=== PATIENT | female | born 1930 | race American Indian/Alaskan Native ===

== ENCOUNTER 2016-07-16 17:57 | Emergency (ER) | payer MEDICARE ==
[2016-07-16 20:59] LABS: Basophils % (Auto) 0.4 % (0.0-1.8); Eosinophils % (Auto) 0.7 % (0.0-4.3); Hematocrit 41.6 % (30.3-42.9); Mean Corpuscular HGB Conc 34 % (30-34); Mean Corpuscular Hemoglobin 31 pg (28-32); Mean Corpuscular Volume 92 fl (79-97); Platelet Count 181 K/mm3 (140-440); Red Blood Count 4.53 M/mm3 (3.65-5.03); Red Cell Distribution Width 14.2 % (13.2-15.2); White Blood Count 9.3 K/mm3 (4.5-11.0)
[2016-07-16] MEDS ORDERED: TYLENOL PO ONE (21:07)
[2016-07-16] MEDS ORDERED: TENIVAC IM ONE (21:07)
[2016-07-16 21:09] LABS: Creatine Kinase MB 1.7 ng/mL (0.0-4.0)
[2016-07-16 21:10] LABS: Creatine Kinase 36 units/L (30-135)
[2016-07-16 21:49] LABS: Albumin 4.3 g/dL (3.9-5); Albumin/Globulin Ratio 1.8 %; BUN/Creatinine Ratio 16.36; Bilirubin,Total 0.4 mg/dL (0.1-1.2); Calcium 9.4 mg/dL (8.4-10.2); Chloride 101.3 mmol/L (98-107); Potassium 3.6 mmol/L (3.6-5.0); Total Protein 6.7 g/dL (6.3-8.2)
[2016-07-16 22:01] LABS: Bacteria,Urine 1+ /HPF (Negative); Bilirubin,Urine NEG (Negative); Blood,Urine NEG (Negative); Ketones,Urine TR mg/dL (Negative); Leukocyte Esterase,Urine MOD (Negative); Mucus,Urine FEW /HPF; Nitrite,Urine NEG (Negative); Urobilinogen,Urine < 2.0 mg/dL (<2.0)
[2016-07-16] MEDS ORDERED: BOOSTRIX IM ONE (22:05)
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
--- NOTE | 2016-07-16 23:52 | Cat Scan Report ---
FINAL REPORT PROCEDURE: CT HEAD/BRAIN WO CON TECHNIQUE: Computerized tomography of the head was performed without contrast material. HISTORY: fall, ? head injury COMPARISON: No prior studies are available for comparison. FINDINGS: Skull and scalp: Normal. Paranasal sinuses: Normal. Ventricles and subarachnoid spaces: Mild dilatation. Cerebrum: No evidence of hemorrhage, acute infarction or mass. Involutional change with atrophy and periventricular and deep white matter microangiopathy. Lacunar infarcts of the basal ganglia Cerebellum and brainstem: No evidence of hemorrhage, acute infarction or mass. Atrophy Vasculature: Normal. Comments: None. IMPRESSION: Involutional change with atrophy and microangiopathy. No hemorrhage
[2016-07-17 00:12] VITALS: BP 142/78
== END 2016-07-17 00:12 | disposition home or self-care (01) ==
LOC: ED 17:57
DX: S51.802A Unspecified open wound of left forearm, initial encounter (principal); I10 Essential (primary) hypertension; F03.90 Unspecified dementia, unspecified severity, without behavioral disturbance, psychotic disturbance, mood disturbance, and anxiety; W18.39XA Other fall on same level, initial encounter; Y93.89 Activity, other specified; Y99.8 Other external cause status; Y92.89 Other specified places as the place of occurrence of the external cause
CPT/HCPCS: 36415; 70450; 80053; 81001; 82550; 82553; 84484; 85025; 90471; 90714; 90715

== ENCOUNTER 2018-06-21 08:47 | Outpatient (CLI) | payer MEDICARE ==
--- NOTE | 2018-06-21 11:18 | Mammography Report ---
BILATERAL DIGITAL SCREENING MAMMOGRAM with CAD: 06/21/18 CLINICAL: Routine screening. COMPARISON:None available. However, a prior mammogram was apparently done at [facility]. FINDINGS: The breasts are heterogeneously dense, which may obscure small masses. Left asymmetries require comparison with a prior mammogram or additional imaging.No architectural distortion or suspicious calcifications.The right breast is negative. IMPRESSION: Left asymmetries requiring further evaluation. BI-RADS CATEGORY: 0 -- Additional Evaluation Required RECOMMENDATION: Comparison with a previous mammogram. We will attempt to obtain a prior mammogram for comparison. If we do not obtain a prior mammogram within 30 days, a revised report will be issued recommending a recall for additional imaging. Please be advised that the patient should not schedule an appointment for return until adequate time (at least 2 weeks) has passed for us to obtain the prior mammogram. ACR BI-RADS MAMMOGRAPHIC CODES: 0 = Needs additional imaging evaluation; 1 = Negative; 2 = Benign; 3 = Probably benign; 4 = Suspicious; 5 = Malignant; 6 = Known biopsy-proven malignancy COMMENT: 1. Dense breast tissue, i.e., adenosis, fibrocystic changes, etc., may obscure an underlying neoplasm. 2. Approximately 10% of cancers are not detected with mammography. 3. A negative mammography report should not delay biopsy if a clinically suspicious mass is present. COMMENT: Patient follow-up letters are generated via our [employer] application.
== END 2018-06-21 08:48 | disposition home or self-care (01) ==
LOC: MAMMO 08:47
PROVIDERS: ATTEND Internal Medicine Geriatric Medicine
DX: Z12.31 Encounter for screening mammogram for malignant neoplasm of breast (principal); I10 Essential (primary) hypertension
CPT/HCPCS: 77067